=== PATIENT | female | born 1980 | race African-American/Black ===

== ENCOUNTER 2017-06-14 08:33 | Emergency (ER) | payer SELFPAY ==
[~2017-06-14] VITALS: Ht 162.6 cm; Wt 78.5 kg
--- NOTE | ~2017-06-14 | EKG ---
PATIENT: ANUPAMA GRIDER UNIT #: [id number] Ventricular Rate: 77 BPM Atrial Rate: 77 BPM P-R Interval: 126 ms QRS Duration: 102 ms Q-T Interval: 380 ms QTC Calculation(Bezet): 430 ms P Preble: 41 degrees Calculated R Preble: 46 degrees Calculated T Preble: 17 degrees Diagnosis Line: Normal sinus rhythm Diagnosis Line: Normal ECG Diagnosis Line: No previous ECGs available Diagnosis Line: Confirmed by KAYLEIGH DAVIS MD ([id number]) on Diagnosis Line: 06/15/2017 8:23:25 PM INTERPRETING MD: NATALIIA
--- NOTE | ~2017-06-14 | CR72 ---
[facility] A Service of [facility] [place] RADIOLOGY TEXT RESULTS PATIENT: ANUPAMA GRIDER LOCATION: [facility] : 84 UNIT #: [id number] AGE: [address]: Karie Dominguez APRN SEX: F ORDER DR: [id number] [facility] [address] [place], [place] [address] [id number] E MR#: [id number] Acc #: [id number] NAME: ANUPAMA GRIDER : 1980 SEX: F STUDY DATE/TIME: 06/14/2017 9:04 UNIT: [facility] ROOM: STUDY DESCRIPTION: CR Chest Single View Portable Attending Physician: Karie Dominguez A.P.R.N. Ordering Physician: Ed Doc Veena Looney Primary Care Physician: Primary Care Physician No MEDICAL IMAGING REPORT This report is preliminary unless electronic signature is present EXAM Chest x-ray single view portable HISTORY Short of air with pain left side lateral back and around under left breast area since yesterday. COMMENTS Single frontal portable view of the chest timed 09:04 on 06/14/2017 reviewed. No previous. Heart size is normal. No acute-appearing parenchymal infiltrate, acute congestive failure or pneumothorax. No pleural effusion suspected. IMPRESSION No active disease. Some interstitial markings of uncertain significance clinically since I have no comparison films. Dictated by... Alexandrea Fortune M.D. THIS IS AN ELECTRONICALLY VERIFIED REPORT Alexandrea Fortune M.D. at 06/15/2017 7:53 AM RUDDY/[place] TD: 06/14/2017 17:14 JOB #: [id number] MEDICAL IMAGING REPORT Page 1 of 1 COPY
[2017-06-14 09:32] LABS: BASOPHIL# 0.1 X10e3 (0-0.3); BASOPHIL% 0.8 % (0-2.5); EOSINOPHIL# 0.3 X10e3 (0-0.7); EOSINOPHIL% 3.9 % (0.0-7.0); HEMATOCRIT 43.4 % (35.0-45.0); HEMOGLOBIN 13.8 gm/dL (12.0-16.0); LYMPHOCYTE# 2.6 X10e3 (1.0-3.5); MEAN CELL VOLUME 76.3 FL (83-96); MEAN CORPUSCULAR HEMOGLOBIN 24.4 PG (28-34); MEAN CORPUSCULAR HGB CONC 31.9 g/dL (30-36); MEAN PLATELET VOLUME 8.5 FL (6.5-11.5); MONOCYTE# 0.7 X10e3 (0-1.0); MONOCYTE% 9.4 % (3.0-12.0); NEUTROPHIL# 3.8 X10e3 (1.5-7.1); NEUTROPHIL% 50.9 % (40-75); PLATELET COUNT 210 X10e3 (140-420); RED BLOOD COUNT 5.68 X10e (3.90-5.30); RED CELL DISTRIBUTION WIDTH 16.7 % (11.0-15.5); WHITE BLOOD COUNT 7.5 X10e3 (4.0-10.5)
[2017-06-14 09:36] LABS: DIFF IND NO
[2017-06-14 09:36] LABS: URINE SOURCE CLEAN CATCH
[2017-06-14 09:40] LABS: POC - CKMB <1.0 ng/mL (0.0-7.9); POC - TROPONIN <0.05 ng/mL (<=0.05)
[2017-06-14 09:52] LABS: AMPHETAMINE NEG (NEG); BARBITURATES NEG (NEG); BENZODIAZEPINES NEG (NEG); COCAINE NEG (NEG); MARIJUANA POS (NEG); OPIATES NEG (NEG); TRICYCLIC ANTIDEPRESSANTS NEG (NEG); U METHADONE NEG (NEG)
[2017-06-14 09:56] LABS: BILIRUBIN, DIRECT 0.1 mg/dL (0.0-0.2); BILIRUBIN,INDIRECT 0.4 mg/dL (0.0-0.9); BILIRUBIN,TOTAL 0.5 mg/dL (0.2-2.0); CREATININE SERUM 0.8 mg/dL (0.6-1.4); GLOM FILT RATE Estimated 111.6 mL/min (>60); POTASSIUM 3.7 mmol/L (3.5-5.1); PROTEIN TOTAL SERUM 7.1 g/dL (6.0-8.3)
[2017-06-14 09:57] LABS: CULTURE INDICATED? YES; URBCS1 AUWI 0-2 /[HPF] (0-2); URINE APPEARANCE CLEAR; URINE BACTERIA AUWI 1+ (NEGATIVE); URINE BILIRUBIN NEG (NEG); URINE BLOOD NEG (NEG); URINE COLOR YELLOW; URINE GLUCOSE NEG (NEG); URINE KETONE NEG (NEG); URINE LEUKOCYTE ESTERASE TRACE (NEG); URINE NITRATE NEG (NEG); URINE PROTEIN NEG (NEG); URINE SPECIFIC GRAVITY 1.019 (1.003-1.035); URINE SQUAMOUS EPITHELIAL CELL OCC /[HPF]; URINE UROBILINOGEN 0.2 MG/DL (NEG)
[2017-06-14 10:06] LABS: PARTIAL THROMBOPLASTIN TIME 25.9 SECONDS (23.5-31.3); PROTHROMBIN TIME (PATIENT) 10.7 SECONDS (10.0-11.7)
== END 2017-06-14 11:26 | disposition home or self-care (01) ==
LOC: CED 08:33
PROVIDERS: Nurse Practitioner
DX: R07.89 Other chest pain (principal); N39.0 Urinary tract infection, site not specified; F17.200 Nicotine dependence, unspecified, uncomplicated
CPT/HCPCS: 36415; 71010; 80048; 80076; 80307; 81003; 82553; 83880; 84484; 84703; 85025; 85379; 85610; 85730; 87086; 93005; 99285